=== PATIENT | female | born 1955 | race Caucasian/White ===

== ENCOUNTER 2024-09-17 13:52 | Emergency (ER) | payer MEDICARE, SELFPAY ==
--- NOTE | ~2024-09-17 | XR_ITS ---
EXAMINATION: XR CHEST 2 VIEWS HISTORY: cough, sob COMPARISON: There are no prior studies for comparison. FINDINGS: PA and lateral views of the chest are submitted. There is patchy opacity in the right lower lung zone, suspicious for pneumonia. The left lung is clear. There is no pleural effusion, pneumothorax, or pulmonary vascular congestion. The heart is normal in size. There is mild anterior wedging of a midthoracic vertebral body. XR/XR chest 2V IMPRESSION: Patchy opacity in the right lower lung zone, suspicious for pneumonia. Follow-up is recommended to document resolution. Electronically signed by: Anil Cain MD 09/17/2024 02:46 PM [facility] [place], [place]
[2024-09-17 14:03] VITALS: BP 184/80; PULSE 96; RESP 20; TEMP 37.3; O2SAT 97; BMI 23.8
--- NOTE | 2024-09-17 14:03 | ED.URI ---
HPI - URI/Sore Throat General Chief Complaint: Upper Respiratory Symptoms Stated Complaint: Cough Back Pain Time Seen by Provider: 09/17/24 17:06 Source: patient, RN notes reviewed and old records reviewed Mode of arrival: ambulatory History of Present Illness ED Provider: Jessica Noyola PA-C HPI Narrative: 68-year-old female with no significant past medical history presenting to the ED complaining of rhinorrhea, congestion, dry cough, SOB, myalgias, chills x months. Admits symptoms worsened after using Clorox in laundry. Denies chest pain, pedal edema, recent travel, sick contacts Related Data Previous Rx's ?Medication ?Instructions ?Recorded amoxicillin 875 mg-potassium 1 tab PO BID 7 days #14 tabs 09/17/24 clavulanate 125 mg tablet azithromycin 250 mg tablet See Rx Instructions PO .COMPLEX #6 09/17/24 tabs benzonatate 100 mg capsule 100 mg PO TID PRN cough #14 caps 09/17/24 Allergies Allergy/AdvReac Type Severity Reaction Status Date / Time No Known Allergies Allergy Verified 09/17/24 14:06 Review of Systems Review of Systems: Yes all other systems are reviewed and are negative Constitutional: Constitutional: Reports as per [facility] Past Medical History Attestation statement: The following information was validated with the patient. Source: old records reviewed Physical Exam Vital Signs: Vital Signs: Last Vital Signs Temp 99.1 F 09/17/24 14:03 Pulse 96 09/17/24 14:03 Resp 20 09/17/24 14:03 BP 184/80 H 09/17/24 14:03 Pulse Ox 97 09/17/24 14:03 O2 Del Method Room Air 09/17/24 14:03 BMI result Body Mass Index 23.8 Const: General: cooperative, healthy appearing and no acute distress Orientation/consciousness: patient oriented x3 Limitations: no limitations HEENT: Head: Yes normal to inspection and Yes atraumatic Ears: hearing grossly normal bilaterally General nose exam: Normal external nose present Face and sinus: Yes normal facial exam Mouth: Normal oral and palatal mucosa present and no drooling Throat: Yes posterior oropharynx normal, Yes tonsils normal, Yes uvula midline, No uvula laterally displaced and No uvular edema Eyes: General: appearance normal, both eyes and all related structures EOM: EOMs intact bilaterally Neck: Neck: Yes normal visual inspection and Yes no meningeal signs Resp: Effort & Inspection: normal respiratory effort, no respiratory distress and no stridor Auscultation: clear to auscultation bilaterally, no crackles, no rales, no rhonchi and no wheezes Cardio: Rate: regular rate Heart sounds: S1 normal heart sound present and S2 normal heart sound present Skin: Rashes: no rashes Wounds: no wounds Neuro: General: patient oriented x3, tone normal and no meningeal signs Cranial nerves: Yes CN's II-XII intact bilaterally Gait exam (Neuro): Normal gait present Extrem: General: Yes normal to inspection Course Course Course Narrative: This is a Rapid Medical Exam performed in triage by Jessica Noyola PA-C. Full HPI, ROS and PE to be performed by primary ED provider. 68 yo F presenting to the ED c/o rhinorrhea, cough, SOB, mid-back pain, myalgias x months. Admits sx worsened after using Chlorox PE: +congested, lungs CTA, uvula midline. No tonsillar exudates Plan: viral testing, CXR -1709--influenza a positive. Rapid strep negative XR chest 2V IMPRESSION: Patchy opacity in the right lower lung zone, suspicious for pneumonia. Follow-up is recommended to document resolution. Results discussed with patient including worrisome signs and symptoms and strict return precautions, and when to return to the emergency department. They verbalized understanding and feel safe for discharge at this time. Medical Decision Making Medical Decision Making [facility] Narrative: 68-year-old female with no significant past medical history presenting to the ED complaining of rhinorrhea, congestion, dry cough, SOB, myalgias, chills x months. On exam vital signs stable, low-grade temp 99.1 degrees, NAD, nontoxic appearing, talking in complete sentences, no respiratory distress, lungs CTA. Concern for viral illness vs pneumonia vs bronchitis. Lower suspicion for ACS/PE or DVT. No evidence of [employer]/retropharyngeal abscess Plan: Viral testing, rapid strep, CXR Please refer to course for remaining clinical decision making, interpretation of labs/imaging results, and discussions with consultants and/or family members. Differential Diagnosis Differential Diagnoses: The differential diagnosis associated with the presentation includes As above Admission/Observation Consideration of admission/observation: Escalation of care including admission/observation considered Lab Data [facility] Lab Attestation statement: I reviewed the patient's lab results. Labs: Lab Results 09/17/24 Range/Units 14:33 Influenza Type A (PCR) POSITIVE A (Negative) Influenza Type B (PCR) NEGATIVE (Negative) RSV RNA Qual (PCR) NEGATIVE (Negative) SARS-CoV-2 RNA (RT-PCR) NEGATIVE (Negative) S. pyogenes GrpA INES Negative (Negative) Independent Interpretation I performed an independent interpretation of an: Plain X-Ray Radiology Impression Discussion of test interpretation with radiology: I have reviewed the radiologist's reading. External Record Review External record reviewed: Inpatient record, Office record, Outpatient record, Prior outpatient labs, Prior outpatient radiology, Primary care record and Outside ED record Tests considered The following testing was considered but not selected: As above Prescription Management I considered prescription management with: Pain Medication, Antiviral and Antibiotic Chronic Conditions Patient?s care impacted by: Other Social Determinants Patient?s care significantly limited by Social Determinants of Health including: Other Social Determinant of Health Discharge Plan Discharge Clinical Impression: Influenza, Pneumonia Patient Disposition: Home, Self-Care Instructions: Influenza (DC), Pneumonia (ED) Additional Instructions: You have the flu and pneumonia Azithromycin and Augmentin are antibiotics please take as prescribed Chel Watkins for cough Please have close follow-up with her doctor Take Tylenol and ibuprofen for pain If her symptoms persist or worsening of constant worsening chest pain, shortness breath, fever unresolved with medications return to the ED Prescriptions: New azithromycin 250 mg tablet See Rx Instructions .ROUTE .COMPLEX Qty: 6 0RF Rx Instructions: take 500 mg today (day 1), then 250 mg for 4 days (days 2-5) benzonatate 100 mg capsule 100 mg PO TID PRN (Reason: cough) Qty: 14 0RF amoxicillin-pot clavulanate 875-125 mg tablet 1 tab PO BID 7 Days Qty: 14 0RF Referrals: Physician,Unknown J [Primary Care Provider] - 5 days Print Language: Luxembourger
[2024-09-17 14:52] LABS: IDNOW Serial# 58CA691E; Strep A Nucleic Acid Negative (Negative)
[2024-09-17 15:19] LABS: Influenza A PCR POSITIVE (Negative); Influenza B PCR NEGATIVE (Negative); Resp Syncy Virus RNA Qual PCR NEGATIVE (Negative); SARS COV2 PCR INHOUSE NEGATIVE (Negative)
[2024-09-17 17:19] VITALS: BP 184/80; PULSE 96; RESP 20; TEMP 37.3; O2SAT 97
== END 2024-09-17 17:20 | disposition home or self-care (01) ==
LOC: HO.ED 17:17
PROVIDERS: Physician Assistant; Emergency Provider Emergency Medicine
DX: J10.1 Influenza due to other identified influenza virus with other respiratory manifestations (principal); J18.9 Pneumonia, unspecified organism; M79.10 Myalgia, unspecified site; R05.9 Cough, unspecified; M54.50 Low back pain, unspecified; R06.02 Shortness of breath; Z03.818 Encounter for observation for suspected exposure to other biological agents ruled out
CPT/HCPCS: 0241U; 71046; 87651; 99282; 99283

== ENCOUNTER → 2024-09-17 14:04 | Outpatient (BNV) | payer SELFPAY | PROVIDERS: Visit Provider Radiology Diagnostic Radiology | DX: R05.9 Cough, unspecified (principal); R06.02 Shortness of breath | CPT/HCPCS: 71046 ==